=== PATIENT | female | born 1985 | race African-American/Black ===

== ENCOUNTER 2020-04-07 22:19 | Emergency (ER) | payer SELFPAY ==
[~2020-04-07] VITALS: Ht 165.1 cm; Wt 64.4 kg
[2020-04-07 22:21] VITALS: BP 129/72
[2020-04-07 22:59] LABS: MICROSCOPIC AUTO
--- NOTE | 2020-04-07 23:03 | NUR ---
THIS PT PRESENTS TO THE ER FOR A RE-OCCURING UTI FOR WHICH SHE COMPLETED HER ABX. PT PRESENTS IN NO SIGNS OF ACUTE DISTRESS. CALL LIGHT IN REACH. ALL NEEDS MET.
[2020-04-07 23:25] LABS: HCG UR SG 1.031 (1.003-1.030)
== END 2020-04-07 23:52 | disposition home or self-care (01) ==
LOC: ED 23:30
DX: N30.01 Acute cystitis with hematuria (principal)
CPT/HCPCS: 81001; 81025; 87077; 87086; 87186; 99283